=== PATIENT | male | born 1980 | race Caucasian/White ===

== ENCOUNTER → 2019-01-11 | Day surgery (SDC) | payer SELFPAY ==
[~2019-01-11] VITALS: Ht 170.2 cm; Wt 81.3 kg
[2019-01-11] VITALS (7 sets, daily range): BP systolic 105–128; BP diastolic 69–83; PULSE 54–94; TEMP 98.1–99.1
[~2019-01-11] MED LIST: MOTRIN 800800 MG/TAB PO; NORCO 325 MG-51 TAB PO
--- NOTE | 2019-01-11 07:13 | NUR ---
Resting on cart and awaits surgery. Siderails up x2 and call light in reach. Fentanyl given by Jackson Latham for pain and anxiety. Placed on O2 monitor and room air sats 97%. P-74.
--- NOTE | 2019-01-11 09:25 | NUR ---
Patient returns to room 8 per cart from PACU and is awake and alert. Temp 97.9 and room air sats 97%. States that he is having some abdominal soreness and burning sensation in his lower back. IV fluids infusing and call light in reach. Siderails up x2. Given Sprite to sip and allowed to rest. Laying on ice bag that was placed in PACU to help with discomfort.
--- NOTE | 2019-01-11 09:40 | NUR ---
Resting and sipping on Sprite.
--- NOTE | 2019-01-11 09:55 | NUR ---
Tense and states that the burning sensation and lower abdominal discomfort is becoming worse. Rates pain at 5/10. Dr. Mason notified and order for Percocet and Flomax received.
--- NOTE | 2019-01-11 10:06 | NUR ---
Percocet 5mg one tab given for pain and is eating vanilla pudding. Has been drinking water and denies nausea.
--- NOTE | 2019-01-11 10:10 | NUR ---
States that he is hungry. Given toast and second vanilla pudding.
--- NOTE | 2019-01-11 10:25 | NUR ---
Becoming more relaxed now. States discomfort is beginning to subside.
--- NOTE | 2019-01-11 10:32 | NUR ---
Assisted up to the bathroom. Able to void and returns to room. Stent is taped to penis. Given script for [place] and written instructions on removing stent on Monday01/14/19. IV discontinued and allowed to dress self.
--- NOTE | 2019-01-11 10:56 | NUR ---
Given dismissal instructions and voices understanding of home cares and provided script for [place]. Provided office number for questions and concerns.
--- NOTE | 2019-01-11 11:03 | NUR ---
Patient dismissed to home per private vehicle driven by mother. Taken to the front door per wheelchair and assisted into vehicle by Rhea GUTIERREZ with dismissal instructions in hand.
== END ==
LOC: SDCO 05:52
DX: N20.1 Calculus of ureter (principal); F17.210 Nicotine dependence, cigarettes, uncomplicated; Z87.442 Personal history of urinary calculi; F32.9 Major depressive disorder, single episode, unspecified
CPT/HCPCS: C1769; C2617; J0690; J1100; J1885; J2405; J2704; J3010; J7120